=== PATIENT | male | born 1930 | race Two or more races ===

== ENCOUNTER 2017-02-02 11:17 | Emergency (ER) | payer MEDICARE, OTHER ==
[~2017-02-02] VITALS: Ht 175.3 cm; Wt 65.8 kg
[~2017-02-02 11:17] MED LIST: ASPI81TA31 PO; CARV3.12 PO; CLOP75TA2 PO; ESCI20TA PO; EZET10TA PO; FINA5TAB11 PO; LOSA50TA3 PO; Metoclopramide Hcl PO; PANT40TA2 PO; PLAVIX PO; RANI150T12 PO; RANO10003 PO; ROSU10TA PO; ROSU20TA PO; SILO8CAP PO
--- NOTE | 2017-02-02 11:54 | NUR ---
PT IS IN ROOM #1B. DR MOISE EVALUATED THE PT.
[2017-02-02] MEDS ORDERED: IV NORMAL SALINE 250 ML IV ONE ×2 (12:00→13:26)
[2017-02-02] MEDS ORDERED: PANTOPRAZOLE SODIUM IV 40 MG in IV DEXTROSE 5% 100 ML IV ONE (12:00)
[2017-02-02] MEDS ORDERED: CYAN10009 PO (12:06)
[2017-02-02] MEDS ORDERED: FLUO15CR TP (12:06)
[2017-02-02] MEDS ORDERED: SODIUM CHLORIDE PO (12:06)
[2017-02-02] MEDS ORDERED: CHOL20004 PO (12:06)
[2017-02-02] MEDS ORDERED: TRAZ-144 PO (12:06)
[2017-02-02] MEDS ORDERED: PANTOPRAZOLE SODIUM 40 MG VIAL ONE (12:21)
[2017-02-02 12:25] LABS: BASOPHILS # (AUTO) 0.1 K/uL (0.0-8.0); BASOPHILS % (AUTO) 0.7 % (0.0-2.0); EOSINOPHILS # (AUTO) 0.2 K/uL (0.0-0.7); HEMATOCRIT 39.7 % (40-50); HEMOGLOBIN 12.6 G/DL (14.0-18.0); LYMPHOCYTES # (AUTO) 1.3 K/UL (0.8-4.8); LYMPHOCYTES % (AUTO) 16.2 % (20.5-51.5); MEAN CORPUSCULAR HEMOGLOBIN 26.9 UUG (27.0-31.0); MEAN CORPUSCULAR HGB CONC 32 g/dL (32.0-37.0); MEAN CORPUSCULAR VOLUME 84.8 FL (82.0-92.0); MONOCYTES # (AUTO) 0.3 K/UL (0.1-1.30); MONOCYTES % (AUTO) 4.1 % (0.0-11.0); NEUTROPHILS # (AUTO) 6.3 K/UL (1.8-8.9); PLATELET COUNT (AUTO) 243 K/UL (150-450); RED BLOOD CELL COUNT(AUTO) 4.68 MIL/UL (4.7-6.1); WHITE BLOOD COUNT (AUTO) 8.2 K/UL (4.0-11.2)
[2017-02-02 12:39] LABS: BILIRUBIN,TOTAL 0.4 mg/dL (0.2-1.0); POTASSIUM 4.5 mmol/L (3.5-5.1); TOTAL PROTEIN, SERUM 6.2 g/dL (6.4-8.2)
[2017-02-02 12:40] LABS: CREATININE 1.6 mg/dL (0.6-1.3)
[2017-02-02 12:56] LABS: BAND % (MANUAL) 18 % (0-10); EOSINOPHILS % (MANUAL) 2 % (0-8); LYMPHOCYTES % (MANUAL) 11 % (20-40); MONOCYTES % (MANUAL) 5 % (2-10); NEUTROPHILS % (MANUAL) 63 % (42-75)
[2017-02-02 13:00] LABS: REACTIVE LYMPHOCYTES 1 % (0-0)
[2017-02-02] MEDS ORDERED: IOHEXOL 300MG/ML 100 ML INFUS..BTL ONE (13:26)
[2017-02-02 13:38] LABS: *OCCULT BLOOD STOOL NEGATIVE (NEGATIVE)
[2017-02-02 14:28] LABS: *BILIRUBIN,URIN NEGATIVE (NEGATIVE); *BLOOD, URINE Trace-intact (NEGATIVE); *CLARITY,URINE CLEAR (CLEAR); *COLOR,URINE YELLOW (YELLOW); *KETONES,URINE NEGATIVE (NEGATIVE); *PROTEIN,URINE NEGATIVE (NEGATIVE); *UROBILINOGEN,URINE 0.2 E.U./dl (NORMAL); LEUKOCYTE ESTERASE ,URINE NEGATIVE (NEGATIVE); NITRITE, URINE NEGATIVE (NEGATIVE); PH,URINE 5.5 (5.0-8.0); UGLUCOSE NEGATIVE (NEGATIVE)
--- NOTE | 2017-02-02 14:31 | NUR ---
REPORT GIVEN TO AMBULANCE EMT.
[2017-02-02 15:01] LABS: BACTERIA,URINE NONE SEEN /HPF (NONE SEEN); SQUAMOUS EPITHELIAL CELL,UR FEW /HPF (NONE SEEN); WBC,URINE 0-3 /HPF (0-3)
--- NOTE | 2017-02-02 19:03 | NUR ---
Signed out from Dr. Daniel. The patient is an 86 year old man who came to the ED for weakness. CT abdomen pelvis unremarkable. US RUQ with gallstones and slight thickening without PCCF. No abdominal pain. No fever. Negative nieves's. WBC 8. I offered the patient inpatient admission for serial abdominal exams versus belly check tomorrow morning. He lives at home with his and his son will bring him to the hospital tomorrow. I think this is reasonable. No abx for now. Stable for outpatient management.
--- NOTE | 2017-02-02 19:24 | NUR ---
Patient discharged to home in stable conditon. Written and verbal after care instructions given. Patient verbalizes understanding of instructions. Pt walked out of ER unassisted with belongings at side...
[2017-02-02 19:26] VITALS: BP 135/78
== END 2017-02-02 19:27 | disposition home or self-care (01) ==
LOC: ER 11:19
DX: K81.9 Cholecystitis, unspecified (principal); I50.9 Heart failure, unspecified; I10 Essential (primary) hypertension; C61 Malignant neoplasm of prostate; Z88.6 Allergy status to analgesic agent; Z79.82 Long term (current) use of aspirin
CPT/HCPCS: 36415; 74022; 74177; 76705; 80053; 81001; 82270; 82550; 83690; 84484; 85025; 85610; 93005; 96365; 96366; 99285; A4663; C9113; J7030; J7050; J7060; Q9967; 70030-TC